=== PATIENT | female | born 1955 | race Caucasian/White ===

== ENCOUNTER 2018-04-07 19:42 | Observation (INO) ==
[2018-04-07] MEDS ORDERED: 0.9 % Sodium Chloride 1,000 ML IVC ONE (21:27)
--- NOTE | 2018-04-07 21:36 | Emergency Department Note ---
Disposition Clinical Impression: Altered mental status Qualifiers: Altered mental status type: unspecified Qualified Code(s): R41.82 - Altered mental status, unspecified Disposition: Admitted As Inpatient Condition: Fair Referrals: Ministerio Calloway DO [Primary Care Provider] - Time of Disposition: 01:54 Altered Mental Status HPI - General Chief Complaint: ED Altered Mental Status Stated Complaint: disoriented 2 days, on antibiotics for uti Time Seen by Provider: 04/07/18 21:05 Source: patient Limitations: no limitations Nursing Notes Reviewed: Yes Vital Signs Reviewed: Yes - History of Present Illness HPI Narrative: Patient is a 62-year-old female who presents to [facility] ED with a chief complaint of altered mental status. Patient is Accompanied by her boyfriend. States she started getting a cold after returning from vacation about a week and a half ago in [place]. Patient had been not feeling well and had seen her primary care physician who gave her prescription for Bactrim for a urinary tract infection. She has been on the antibiotic for the last 3 days. Boyfriend states she has been talking out of her head about being healed by God and Yahweh. No prior psychiatric history. 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 complaint: confusion Onset (ago): day(s) (2) Associated symptoms: Denies: chest pain, cough, fever, chills, nausea/vomiting, shortness of breath - Related Data Home Medications Medication Instructions Recorded Confirmed Aspirin Enteric Coated [Aspirin EC] 81 mg PO DAILY 02/04/16 08/20/16 Multivitamin [Multi-Day Vitamins] 1 tab PO DAILY 02/04/16 08/20/16 Naproxen Sodium [Aleve] 220 mg PO HS PRN 02/04/16 08/20/16 Simvastatin [Zocor] 10 mg PO HS 02/04/16 08/20/16 Black Cohosh Root Extract [Black 160 mg PO DAILY 08/20/16 08/20/16 Cohosh] Ubidecarenone/Vit E Acetate [Co 1 each PO DAILY 08/20/16 08/20/16 Q-10 100 mg Softgel] Previous Rx's Medication Instructions Recorded Ondansetron [Zofran] 8 mg PO Q8HR #10 tablet 08/20/16 Oxycodone HCl/Acetaminophen 1 each PO Q4-6H PRN #30 tablet 08/20/16 [Percocet 5-325 mg Tablet] Allergies Allergy/AdvReac Type Severity Reaction Status Date / Time acetaminophen [From Vicodin] AdvReac Nausea Verified 08/20/16 07:03 hydrocodone [From Vicodin] AdvReac Nausea Verified 08/20/16 07:03 All systems ED: reviewed and negative except as stated. Past Medical History - Past Medical History Attestation: Yes The following information was validated with the patient. Source: patient Medical history: Reports: hyperlipidemia Surgical history: Reports: Psychiatric history: Reports: no psych history - Social History Smoking Status: Never smoker Alcohol use: Reports: occasionally Drug use: Reports: none Physical Exam - General Limitations: no limitations General appearance: alert - Head Head exam: atraumatic, normocephalic, normal inspection - Eye Eye exam: Present: normal appearance, PERRL, EOMI - ENT ENT exam: normal exam, normal oropharynx, mucous membranes moist - Neck Neck exam: Present: normal inspection, full ROM, trachea midline - Chest Chest inspection: Present: normal inspection, symmetric chest wall rise - Respiratory Respiratory exam: Present: normal lung sounds bilaterally - Cardiovascular Cardiovascular exam: Present: normal rhythm, tachycardia - Abdominal Exam Abdominal exam: Present: soft, Non-Tender. Absent: tenderness, distention, guarding, rebound, rigidity - Extremities Exam Extremities exam: Present: normal inspection, full ROM. Absent: tenderness, pedal edema - Neurological Exam Neurological exam: Present: alert, oriented X3 - Psychiatric Psychiatric exam: Present: normal affect, normal mood, other (Patient with abnormal train of thought and talking out of her head about God) - Skin Skin exam: Present: warm, dry, intact, normal color Course Course Narrative: Patient seen and examined. Patient with altered mental status and is talking out of her head. Seems to be having an acute psychotic episode or delirium. Labs, chest x-ray, urine analysis ordered. - Reevaluation(s) Reevaluation #1: Patient's lab work shows a mild leukocytosis. Signs of possible urinary tract infection. We will go ahead and cover with a dose of Levaquin. With patient's symptoms of possible acute psychosis, we will have psychiatry 1A come evaluate her. We will admit for altered mental status workup. Time: 12:55 Reevaluation #2: I discussed with the hospitalist who has accepted patient for admission. We will place a consult to psychiatry. Time: 01:55 Vital Signs Temperature 98.8 F 04/07/18 19:50 Pulse Rate 117 04/07/18 19:50 Respiratory Rate 16 04/07/18 19:50 Blood Pressure 185/80 04/07/18 19:50 O2 Sat by Pulse Oximetry 97 04/07/18 19:50 Temperature 98.8 F 04/07/18 20:48 Pulse Rate 100 04/08/18 01:50 Respiratory Rate 20 04/08/18 01:50 Blood Pressure 170/68 04/08/18 01:50 O2 Sat by Pulse Oximetry 97 04/08/18 01:50 Oxygen Delivery Oxygen Delivery Room Air Altered Mental Status - Medical Records Medical records reviewed: Yes I reviewed the patient's medical records. - Lab Data Lab results reviewed: Yes I reviewed the patient's lab results. Result diagrams: 04/07/18 21:52 04/07/18 21:52 Lab Results 04/07/18 04/07/18 04/07/18 Range/Units 21:52 21:52 21:52 WBC 14.4 H (4.3-11.1) K/mcL RBC 4.34 (3.82-4.97) M/mcL Hgb 12.6 (11.5-15.4) g/dL Hct 38.8 (35.3-44.9) % MCV 89.4 (83.0-100.0) fL MCH 29.0 (28.0-33.3) pg MCHC 32.5 (31.6-35.5) g/dL RDW 14.1 (11.5-14.5) % Plt Count 382 D (140-400) K/mcL MPV 10.8 (9.4-12.4) fL Immature Gran % 1.2 (0-4) % Seg Neutrophils % 71.3 % Lymphocytes % 18.9 % Monocytes % 7.0 % Eosinophils % 1.2 % Basophils % 0.4 % Neutrophils # 10.3 H (1.6-8.9) K/mcL Lymphocytes # 2.7 (0.6-4.6) K/mcL Monocytes # 1.0 (0.0-1.3) K/mcL Eosinophils # 0.2 (0.0-0.6) K/mcL Basophils # 0.1 (0.0-0.2) K/mcL Sodium 137 (136-145) mEq/L Potassium 3.3 L (3.5-5.1) mEq/L Chloride 102 (98-107) mEq/L Carbon Dioxide 21 L (23-29) mEq/L BUN 11 (8-23) mg/dL Creatinine 1.03 (0.60-1.20) mg/dL Est GFR ( Amer) > 60 (> 60) Est GFR (Non-Af Amer) 54 L (> 60) BUN/Creatinine Ratio 11 (6-26) Glucose 117 H (70-105) mg/dL Calculated Osmolality 284 (280-300) Calcium 9.7 (8.6-10.3) mg/dL Total Bilirubin 0.5 (0.3-1.0) mg/dL Direct Bilirubin 0.1 (0.0-0.2) mg/dL Indirect Bilirubin 0.4 (0.0-1.2) mg/dL AST 48 H (13-39) Units/L ALT 102 H (7-52) Units/L Alkaline Phosphatase 276 H (34-104) Units/L Ammonia 37 (16-53) mcmol/L Troponin I < 0.03 (< 0.04) ng/mL Serum Total Protein 8.2 (6.4-8.9) g/dL Albumin 3.8 (3.5-5.7) g/dL Globulin 4.4 H (2.4-3.5) g/dL Albumin/Globulin Ratio 0.9 L (1.1-2.2) TSH 1.392 (0.340-5.600) mcIU/mL Urine Color (Yellow) Urine Clarity (Clear) Urine pH (5.0-8.0) pH Units Ur Specific [place] (1.010-1.025) Urine Protein (Neg-Trace) mg/dL Urine Glucose (UA) (Normal) mg/dL Urine Ketones (Negative) mg/dL Urine Blood (Negative) Urine Nitrite (Negative) Urine Bilirubin (Negative) Urine Urobilinogen (Normal) mg/dL Ur Leukocyte Esterase (Negative) Urine Microscopic RBC (0-3) per hpf Urine Microscopic WBC (0-3) per hpf Ur Squamous Epith Cells (None-Few) per lpf Urine Bacteria (None-Few) per hpf Hyaline Casts (None-Few) per lpf Ur Culture Indicated? (NO) Urine Opiates Screen (Dxjnsm=228) ng/mL Ur Barbiturates Screen (Yxswuv=200) ng/mL Ur Phencyclidine Scrn (Cutoff=25) ng/mL Ur Amphetamines Screen (Hbzwyk=6864) ng/mL U Benzodiazepines Scrn (Cdcgiy=987) ng/mL Urine Cocaine Screen (Cutoff= 300) ng/mL U Marijuana (THC) Screen (Cutoff = 50) ng/mL Ur Drug Screen Interp Ethyl Alcohol < 10 (Less than 10) mg/dL 04/07/18 04/07/18 Range/Units 22:20 22:20 WBC (4.3-11.1) K/mcL RBC (3.82-4.97) M/mcL Hgb (11.5-15.4) g/dL Hct (35.3-44.9) % MCV (83.0-100.0) fL MCH (28.0-33.3) pg MCHC (31.6-35.5) g/dL RDW (11.5-14.5) % Plt Count (140-400) K/mcL MPV (9.4-12.4) fL Immature Gran % (0-4) % Seg Neutrophils % % Lymphocytes % % Monocytes % % Eosinophils % % Basophils % % Neutrophils # (1.6-8.9) K/mcL Lymphocytes # (0.6-4.6) K/mcL Monocytes # (0.0-1.3) K/mcL Eosinophils # (0.0-0.6) K/mcL Basophils # (0.0-0.2) K/mcL Sodium (136-145) mEq/L Potassium (3.5-5.1) mEq/L Chloride (98-107) mEq/L Carbon Dioxide (23-29) mEq/L BUN (8-23) mg/dL Creatinine (0.60-1.20) mg/dL Est GFR ( Amer) (> 60) Est GFR (Non-Af Amer) (> 60) BUN/Creatinine Ratio (6-26) Glucose (70-105) mg/dL Calculated Osmolality (280-300) Calcium (8.6-10.3) mg/dL Total Bilirubin (0.3-1.0) mg/dL Direct Bilirubin (0.0-0.2) mg/dL Indirect Bilirubin (0.0-1.2) mg/dL AST (13-39) Units/L ALT (7-52) Units/L Alkaline Phosphatase (34-104) Units/L Ammonia (16-53) mcmol/L Troponin I (< 0.04) ng/mL Serum Total Protein (6.4-8.9) g/dL Albumin (3.5-5.7) g/dL Globulin (2.4-3.5) g/dL Albumin/Globulin Ratio (1.1-2.2) TSH (0.340-5.600) mcIU/mL Urine Color Yellow (Yellow) Urine Clarity Clear (Clear) Urine pH 7.0 (5.0-8.0) pH Units Ur Specific [place] 1.009 L (1.010-1.025) Urine Protein Negative (Neg-Trace) mg/dL Urine Glucose (UA) Normal (Normal) mg/dL Urine Ketones Negative (Negative) mg/dL Urine Blood Trace H (Negative) Urine Nitrite Negative (Negative) Urine Bilirubin Negative (Negative) Urine Urobilinogen Normal (Normal) mg/dL Ur Leukocyte Esterase Small H (Negative) Urine Microscopic RBC 0-3 (0-3) per hpf Urine Microscopic WBC 5-15 H (0-3) per hpf Ur Squamous Epith Cells Many H (None-Few) per lpf Urine Bacteria None Seen (None-Few) per hpf Hyaline Casts None Seen (None-Few) per lpf Ur Culture Indicated? NO. A (NO) Urine Opiates Screen Negative (Cqswbd=804) ng/mL Ur Barbiturates Screen Negative (Oafdcn=799) ng/mL Ur Phencyclidine Scrn Negative (Cutoff=25) ng/mL Ur Amphetamines Screen Negative (Casimo=0344) ng/mL U Benzodiazepines Scrn Negative (Qpddxp=495) ng/mL Urine Cocaine Screen Negative (Cutoff= 300) ng/mL U Marijuana (THC) Screen Negative (Cutoff = 50) ng/mL Ur Drug Screen Interp See Below Ethyl Alcohol (Less than 10) mg/dL - Radiology Data Radiology results reviewed: Yes I reviewed the patient's radiology results. Chest X-Ray 04/07/18 21:27 IMPRESSION: No acute cardiopulmonary disease. D/ / Bernardo Baker MD / Bernardo Baker MD Interpreting Provider: Bernardo Baker MD Head CT 04/07/18 21:29 IMPRESSION: No acute intracranial abnormality. D/ / Bernardo Baker MD / Bernardo Baker MD Interpreting Provider: Bernardo Baker MD Checklist - LKW: 3-4.5 hrs Add. Warnings/Precautions Patient/family understanding: The patient/family members have been counseled and understood the risk, benefit , and alternatives of treatment.
[2018-04-07 22:15] LABS: Basophils # 0.1 K/mcL (0.0-0.2); Basophils % 0.4 %; Eosinophils # 0.2 K/mcL (0.0-0.6); Eosinophils % 1.2 %; Hematocrit 38.8 % (35.3-44.9); Hemoglobin 12.6 g/dL (11.5-15.4); Immature Granulocytes % 1.2 % (0-4); Lymphocytes # 2.7 K/mcL (0.6-4.6); Lymphocytes % 18.9 %; Mean Corpuscular HGB Conc 32.5 g/dL (31.6-35.5); Mean Corpuscular Volume 89.4 fL (83.0-100.0); Mean Platelet Volume 10.8 fL (9.4-12.4); Neutrophils # 10.3 K/mcL (1.6-8.9); Platelet Count 382 K/mcL (140-400); Red Blood Count 4.34 M/mcL (3.82-4.97); Red Cell Distribution Width 14.1 % (11.5-14.5); Segmented Neutrophils % 71.3 %
[2018-04-07 22:43] LABS: Alanine Aminotransferase 102 Units/L (7-52); Albumin 3.8 g/dL (3.5-5.7); Albumin/Globulin Ratio 0.9 (1.1-2.2); Alkaline Phosphatase 276 Units/L (34-104); Aspartate Amino Transferase 48 Units/L (13-39); BUN/Creatinine Ratio 11 (6-26); Bilirubin,Direct 0.1 mg/dL (0.0-0.2); Bilirubin,Indirect 0.4 mg/dL (0.0-1.2); Bilirubin,Total 0.5 mg/dL (0.3-1.0); Blood Urea Nitrogen 11 mg/dL (8-23); Calcium 9.7 mg/dL (8.6-10.3); Carbon Dioxide 21 mEq/L (23-29); Chloride 102 mEq/L (98-107); Ethanol < 10 mg/dL (Less than 10); Globulin 4.4 g/dL (2.4-3.5); Glucose 117 mg/dL (70-105); Osmolality,Calculated 284 (280-300); Potassium 3.3 mEq/L (3.5-5.1); Sodium 137 mEq/L (136-145); Total Protein 8.2 g/dL (6.4-8.9); Troponin I < 0.03 ng/mL (< 0.04); eGFR For Non-African Americans 54 (> 60)
[2018-04-07 22:46] LABS: Bilirubin,Urine Negative (Negative); Blood,Urine Trace (Negative); Clarity,Urine Clear (Clear); Color,Urine Yellow (Yellow); Glucose,Urine (UA) Normal (Normal); Ketones,Urine Negative (Negative); Leukocyte Esterase,Urine Small (Negative); Nitrite,Urine Negative (Negative); Protein,Urine Negative (Neg-Trace); Specific Gravity,Urine 1.009 (1.010-1.025); Urobilinogen,Urine Normal (Normal)
[2018-04-07 22:49] LABS: Amphetamine Screen,Urine Negative ng/mL (Cutoff=1000); Bacteria,Urine None Seen per hpf (None-Few); Barbiturate Screen,Urine Negative ng/mL (Cutoff=200); Benzodiazepines Screen,Urine Negative ng/mL (Cutoff=200); Cannabinoid Screen,Urine Negative ng/mL (Cutoff = 50); Cocaine Screen,Urine Negative ng/mL (Cutoff= 300); Hyaline Casts,Urine None Seen per lpf (None-Few); Opiate Screen,Urine Negative ng/mL (Cutoff=300); Phencyclidine Screen,Urine Negative ng/mL (Cutoff=25); RBC,Urine 0-3 per hpf (0-3); Squamous Epithelial Cell,Urine Many per lpf (None-Few)
[2018-04-07 22:57] LABS: Thyroid Stimulating Hormone 1.392 mcIU/mL (0.340-5.600)
--- NOTE | 2018-04-08 00:04 | Emergency Department Note ---
Disposition Clinical Impression: Altered mental status Qualifiers: Altered mental status type: unspecified Qualified Code(s): R41.82 - Altered mental status, unspecified Disposition: Admitted As Inpatient Condition: Fair General Adult HPI - General Chief complaint: ED Altered Mental Status Stated complaint: disoriented 2 days, on antibiotics for uti Time Seen by Provider: 04/07/18 21:05 Source: patient Limitations: no limitations Nursing Notes Reviewed: Yes Vital Signs Reviewed: Yes - History of Present Illness Pain Scale: 0 - Related Data Home Medications Medication Instructions Recorded Confirmed Aspirin Enteric Coated [Aspirin EC] 81 mg PO DAILY 02/04/16 08/20/16 Multivitamin [Multi-Day Vitamins] 1 tab PO DAILY 02/04/16 08/20/16 Naproxen Sodium [Aleve] 220 mg PO HS PRN 02/04/16 08/20/16 Simvastatin [Zocor] 10 mg PO HS 02/04/16 08/20/16 Black Cohosh Root Extract [Black 160 mg PO DAILY 08/20/16 08/20/16 Cohosh] Ubidecarenone/Vit E Acetate [Co 1 each PO DAILY 08/20/16 08/20/16 Q-10 100 mg Softgel] Previous Rx's Medication Instructions Recorded Ondansetron [Zofran] 8 mg PO Q8HR #10 tablet 08/20/16 Oxycodone HCl/Acetaminophen 1 each PO Q4-6H PRN #30 tablet 08/20/16 [Percocet 5-325 mg Tablet] Allergies Allergy/AdvReac Type Severity Reaction Status Date / Time acetaminophen [From Vicodin] AdvReac Nausea Verified 08/20/16 07:03 hydrocodone [From Vicodin] AdvReac Nausea Verified 08/20/16 07:03 Past Medical History - Past Medical History Medical history: Reports: hyperlipidemia Surgical history: Reports: Psychiatric history: Reports: no psych history - Social History Smoking Status: Never smoker Alcohol use: Reports: occasionally Drug use: Reports: none Physical Exam - General Limitations: no limitations General appearance: alert Course Vital Signs Temperature 98.8 F 04/07/18 19:50 Pulse Rate 117 04/07/18 19:50 Respiratory Rate 16 04/07/18 19:50 Blood Pressure 185/80 04/07/18 19:50 O2 Sat by Pulse Oximetry 97 04/07/18 19:50 Temperature 98.6 F 04/08/18 03:40 Pulse Rate 98 04/08/18 03:40 Respiratory Rate 17 04/08/18 03:40 Blood Pressure 158/89 04/08/18 03:40 O2 Sat by Pulse Oximetry 98 04/08/18 03:40 Oxygen Delivery Oxygen Delivery Room Air Medical Decision Making - Lab Data Lab results reviewed: Yes I reviewed the patient's lab results. Result diagrams: 04/07/18 21:52 04/07/18 21:52 Lab Results 04/07/18 04/07/18 04/07/18 Range/Units 21:52 21:52 21:52 WBC 14.4 H (4.3-11.1) K/mcL RBC 4.34 (3.82-4.97) M/mcL Hgb 12.6 (11.5-15.4) g/dL Hct 38.8 (35.3-44.9) % MCV 89.4 (83.0-100.0) fL MCH 29.0 (28.0-33.3) pg MCHC 32.5 (31.6-35.5) g/dL RDW 14.1 (11.5-14.5) % Plt Count 382 D (140-400) K/mcL MPV 10.8 (9.4-12.4) fL Immature Gran % 1.2 (0-4) % Seg Neutrophils % 71.3 % Lymphocytes % 18.9 % Monocytes % 7.0 % Eosinophils % 1.2 % Basophils % 0.4 % Neutrophils # 10.3 H (1.6-8.9) K/mcL Lymphocytes # 2.7 (0.6-4.6) K/mcL Monocytes # 1.0 (0.0-1.3) K/mcL Eosinophils # 0.2 (0.0-0.6) K/mcL Basophils # 0.1 (0.0-0.2) K/mcL Sodium 137 (136-145) mEq/L Potassium 3.3 L (3.5-5.1) mEq/L Chloride 102 (98-107) mEq/L Carbon Dioxide 21 L (23-29) mEq/L BUN 11 (8-23) mg/dL Creatinine 1.03 (0.60-1.20) mg/dL Est GFR ( Amer) > 60 (> 60) Est GFR (Non-Af Amer) 54 L (> 60) BUN/Creatinine Ratio 11 (6-26) Glucose 117 H (70-105) mg/dL Calculated Osmolality 284 (280-300) Calcium 9.7 (8.6-10.3) mg/dL Total Bilirubin 0.5 (0.3-1.0) mg/dL Direct Bilirubin 0.1 (0.0-0.2) mg/dL Indirect Bilirubin 0.4 (0.0-1.2) mg/dL AST 48 H (13-39) Units/L ALT 102 H (7-52) Units/L Alkaline Phosphatase 276 H (34-104) Units/L Ammonia 37 (16-53) mcmol/L Troponin I < 0.03 (< 0.04) ng/mL Serum Total Protein 8.2 (6.4-8.9) g/dL Albumin 3.8 (3.5-5.7) g/dL Globulin 4.4 H (2.4-3.5) g/dL Albumin/Globulin Ratio 0.9 L (1.1-2.2) TSH 1.392 (0.340-5.600) mcIU/mL Urine Color (Yellow) Urine Clarity (Clear) Urine pH (5.0-8.0) pH Units Ur Specific [place] (1.010-1.025) Urine Protein (Neg-Trace) mg/dL Urine Glucose (UA) (Normal) mg/dL Urine Ketones (Negative) mg/dL Urine Blood (Negative) Urine Nitrite (Negative) Urine Bilirubin (Negative) Urine Urobilinogen (Normal) mg/dL Ur Leukocyte Esterase (Negative) Urine Microscopic RBC (0-3) per hpf Urine Microscopic WBC (0-3) per hpf Ur Squamous Epith Cells (None-Few) per lpf Urine Bacteria (None-Few) per hpf Hyaline Casts (None-Few) per lpf Ur Culture Indicated? (NO) Urine Opiates Screen (Gvuppg=467) ng/mL Ur Barbiturates Screen (Yqvktf=112) ng/mL Ur Phencyclidine Scrn (Cutoff=25) ng/mL Ur Amphetamines Screen (Jwbptx=9652) ng/mL U Benzodiazepines Scrn (Inwfct=626) ng/mL Urine Cocaine Screen (Cutoff= 300) ng/mL U Marijuana (THC) Screen (Cutoff = 50) ng/mL Ur Drug Screen Interp Ethyl Alcohol < 10 (Less than 10) mg/dL 04/07/18 04/07/18 Range/Units 22:20 22:20 WBC (4.3-11.1) K/mcL RBC (3.82-4.97) M/mcL Hgb (11.5-15.4) g/dL Hct (35.3-44.9) % MCV (83.0-100.0) fL MCH (28.0-33.3) pg MCHC (31.6-35.5) g/dL RDW (11.5-14.5) % Plt Count (140-400) K/mcL MPV (9.4-12.4) fL Immature Gran % (0-4) % Seg Neutrophils % % Lymphocytes % % Monocytes % % Eosinophils % % Basophils % % Neutrophils # (1.6-8.9) K/mcL Lymphocytes # (0.6-4.6) K/mcL Monocytes # (0.0-1.3) K/mcL Eosinophils # (0.0-0.6) K/mcL Basophils # (0.0-0.2) K/mcL Sodium (136-145) mEq/L Potassium (3.5-5.1) mEq/L Chloride (98-107) mEq/L Carbon Dioxide (23-29) mEq/L BUN (8-23) mg/dL Creatinine (0.60-1.20) mg/dL Est GFR ( Amer) (> 60) Est GFR (Non-Af Amer) (> 60) BUN/Creatinine Ratio (6-26) Glucose (70-105) mg/dL Calculated Osmolality (280-300) Calcium (8.6-10.3) mg/dL Total Bilirubin (0.3-1.0) mg/dL Direct Bilirubin (0.0-0.2) mg/dL Indirect Bilirubin (0.0-1.2) mg/dL AST (13-39) Units/L ALT (7-52) Units/L Alkaline Phosphatase (34-104) Units/L Ammonia (16-53) mcmol/L Troponin I (< 0.04) ng/mL Serum Total Protein (6.4-8.9) g/dL Albumin (3.5-5.7) g/dL Globulin (2.4-3.5) g/dL Albumin/Globulin Ratio (1.1-2.2) TSH (0.340-5.600) mcIU/mL Urine Color Yellow (Yellow) Urine Clarity Clear (Clear) Urine pH 7.0 (5.0-8.0) pH Units Ur Specific [place] 1.009 L (1.010-1.025) Urine Protein Negative (Neg-Trace) mg/dL Urine Glucose (UA) Normal (Normal) mg/dL Urine Ketones Negative (Negative) mg/dL Urine Blood Trace H (Negative) Urine Nitrite Negative (Negative) Urine Bilirubin Negative (Negative) Urine Urobilinogen Normal (Normal) mg/dL Ur Leukocyte Esterase Small H (Negative) Urine Microscopic RBC 0-3 (0-3) per hpf Urine Microscopic WBC 5-15 H (0-3) per hpf Ur Squamous Epith Cells Many H (None-Few) per lpf Urine Bacteria None Seen (None-Few) per hpf Hyaline Casts None Seen (None-Few) per lpf Ur Culture Indicated? NO. A (NO) Urine Opiates Screen Negative (Axhzct=993) ng/mL Ur Barbiturates Screen Negative (Encxmy=498) ng/mL Ur Phencyclidine Scrn Negative (Cutoff=25) ng/mL Ur Amphetamines Screen Negative (Dqfxcm=6159) ng/mL U Benzodiazepines Scrn Negative (Lxjjcp=675) ng/mL Urine Cocaine Screen Negative (Cutoff= 300) ng/mL U Marijuana (THC) Screen Negative (Cutoff = 50) ng/mL Ur Drug Screen Interp See Below Ethyl Alcohol (Less than 10) mg/dL - Radiology Data Radiology results reviewed: Yes I reviewed the patient's radiology results. Chest X-Ray 04/07/18 21:27 IMPRESSION: No acute cardiopulmonary disease. D/ / Bernardo Baker MD / Bernardo Baker MD Interpreting Provider: Bernardo Baker MD Head CT 04/07/18 21:29 IMPRESSION: No acute intracranial abnormality. D/ / Bernardo Baker MD / Bernardo Baker MD Interpreting Provider: Bernardo Baker MD Attestation Statement - Attestation Attestation: I, Guille Noe MD, personally evaluated this patient and discussed their management with the resident physician. I reviewed the resident's note and agree with the documented findings, medical decision making, and plan of care. 62-year-old female presents to the emergency department for altered mental status which started 2 days prior to arrival. Patient was diagnosed with UTI and started on Bactrim about 3 days ago. Over the past 2 days she has had symptoms of talking out of her head and saying things that do not make sense. She does not really seem confused or disoriented. She seems to be more psychotic and is talking about the creator the universe and [place]. Patient states that she is a codependent and could not feel herself. Patient appears to be having hallucinations during my interview. She initially admitted to having hallucinations but then denied it. She denies any suicidal or homicidal ideation. No prior history of any psychiatric issues. She denies any pain or symptoms other than some pain in her bladder area. No fever. No gross dysuria. On examination patient is a well-developed well-nourished female in no acute distress. She is alert and oriented 3. No cyanosis or diaphoresis. Breath sounds are clear and equal bilaterally. Heart regular rate and rhythm. Abdomen soft and nontender with normal bowel sounds. No gross focal neurological deficits. Labs reviewed. Chest x-ray negative. Head CT negative. Patient was evaluated by the [address] department here in the emergency department. The hospitalist, Dr. Wiley, was consulted and accepted admission of the patient. Inpatient psychiatric consultation recommended.
[2018-04-08] MEDS ORDERED: cefTRIAXone 2,000 MG in Water for inj. (sterile) 20 ML 20 ML IVP ONE (01:32)
[2018-04-08] MEDS ORDERED: Naloxone 0.4 MG/ML INJ IVP PRN (05:09)
[2018-04-08 06:06] LABS: Hematocrit 34.5 % (35.3-44.9); Hemoglobin 11.4 g/dL (11.5-15.4); Mean Corpuscular Hemoglobin 29.5 pg (28.0-33.3); Mean Corpuscular Volume 89.4 fL (83.0-100.0); Mean Platelet Volume 10.8 fL (9.4-12.4); Platelet Count 369 K/mcL (140-400); Red Blood Count 3.86 M/mcL (3.82-4.97); Red Cell Distribution Width 14.1 % (11.5-14.5)
[2018-04-08] MEDS ORDERED: CefTRIAXone 1,000 MG VIAL IM ONE (07:15)
[2018-04-08 07:18] LABS: BUN/Creatinine Ratio 9 (6-26); Blood Urea Nitrogen 9 mg/dL (8-23); Calcium 9.3 mg/dL (8.6-10.3); Carbon Dioxide 23 mEq/L (23-29); Chloride 110 mEq/L (98-107); Glucose 134 mg/dL (70-105); Osmolality,Calculated 299 (280-300); Potassium 3.9 mEq/L (3.5-5.1); Sodium 144 mEq/L (136-145); eGFR For Non-African Americans 56 (> 60)
--- NOTE | 2018-04-08 07:23 | Internal Med History&Physical ---
Date of Encounter: 04/08/18 Time of Encounter: 04:12 Internal Medicine - H&P: HPI Chief complaint: Acute encephalopathy Admitted From: Home Plans for Post Hospital Care: Home History of present illness: Ms. Rodriguez is a 62 year old female Patient presented to the emergency room for altered mental status, patient poor historian, not answering questions, history obtained from previous ER records. Apparently patient has been treated for urinary tract infection and was started on Bactrim about 3 days ago. She became disoriented, confused and was not making sense. 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 The ER she was making references to [facility] [employer]. Her lab work shows elevated white count of 14.4, potassium initially 3.3, and elevated liver enzymes. Her UA was positive for small leukocyte esterase, trace blood and 5-15 WBCs. Chest x-ray showed no acute findings. Head CT showed no acute intracranial abnormality. She was admitted for further observation and management of her encephalopathy. Past Med Surg Social Fam HX - Past Medical History Medical history: hyperlipidemia Additional medical history: right carotid bruit. mixed hyperlipidemia. hallux abductovalgus with bunions. carotid stenosis,bilateral Psychiatric history: no psych history - Past Surgical History Surgical History: Additional surgical history: Bilat knee replacemnet. - Social History Smoking Status: Never smoker Smokeless Tobacco Status: No Alcohol use: occasionally Drug use: none Internal Medicine - H&P: Meds Aspirin Enteric Coated [Aspirin EC] 81 mg PO DAILY 02/04/16 [History] Multivitamin [Multi-Day Vitamins] 1 tab PO DAILY 02/04/16 [History] Naproxen Sodium [Aleve] 220 mg PO HS PRN 02/04/16 [History] Simvastatin [Zocor] 10 mg PO HS 02/04/16 [History] Black Cohosh Root Extract [Black Cohosh] 160 mg PO DAILY 08/20/16 [History] Ondansetron [Zofran] 8 mg PO Q8HR #10 tablet 08/20/16 [Rx] Oxycodone HCl/Acetaminophen [Percocet 5-325 mg Tablet] 1 each PO Q4-6H PRN #30 tablet 08/20/16 [Rx] Ubidecarenone/Vit E Acetate [Co Q-10 100 mg Softgel] 1 each PO DAILY 08/20/16 [ History] 3 Allergy/AdvReac Type Severity Reaction Status Date / Time acetaminophen [From Vicodin] AdvReac Nausea Verified 08/20/16 07:03 hydrocodone [From Vicodin] AdvReac Nausea Verified 08/20/16 07:03 All Systems PM: A 10-system review of systems was performed and is negative for pertinent findings except as documented above in the HPI. - Constitutional Vitals: Temp Pulse Resp BP Pulse Ox 98.2 F 107 16 156/86 97 04/08/18 06:59 04/08/18 06:59 04/08/18 06:59 04/08/18 06:59 04/08/18 06:59 General appearance: Present: cooperative Exam: Patient very bizarre answers to questions, did not seem oriented. Responded to name but did not give any answers to my questions. - Head Head exam: Present: normal inspection - Eye Eye exam: Present: EOMI, normal appearance - Respiratory Respiratory exam: Present: CTAB. Absent: chest wall tenderness, wheezes - Cardiovascular Cardiovascular exam: Present: RRR. Absent: diastolic murmur, systolic murmur - GI/Abdominal GI/Abdominal exam: Present: normal bowel sounds, soft, tenderness Additional comments: Questionable tenderness with palpation initially but tolerated exam. No distention - Extremities Exam Extremities exam: Present: warm, radial pulses palpable and symmetrical. Absent : calf tenderness, tenderness - Neurological Exam Neurological exam: Present: no focal deficits, strengths equal and symetr throughout. Absent: motor sensory deficit, facial droop, speech deficit - Psychiatric Additional comments: not cooperative to questioning, followed commands with exam. Internal Med - H&P Results - Labs CBC & Chem 7: 04/08/18 05:45 04/07/18 21:52 Labs: Short CBC 04/08/18 Range/Units 05:45 WBC 9.2 (4.3-11.1) K/mcL Hgb 11.4 L (11.5-15.4) g/dL Hct 34.5 L (35.3-44.9) % Plt Count 369 (140-400) K/mcL - Assessment and plan (1) Acute encephalopathy Current Visit: Yes Status: Acute Assessment and plan: Unclear etiology. Patient demonstrated bizarre behaviour in the ER, and for my exam. Psych consult today Continue treatment for UTI as possible source of encephalopathy. Sitter at bedside. (2) Possible urinary tract infection Current Visit: Yes Status: Acute Assessment and plan: Patient had been treated for UTI outpatient, may still be contributing to her current encephalopathy. Continue treatment with ceftriaxone Follow up urine culture. - Time Spent With Patient Total time spent is greater than 50% in coordination of care (as documented) at patient's floor/unit and/or counseling patient: Greater than 35 minutes
--- NOTE | 2018-04-08 08:30 | Electrocardiograph Report ---
[place] [id number] Test Date: 2018-04-07 Pat Name: Jaida Rodriguez Department: Room: 3B21 Gender: F Professional Application Designer: : 1955 Requested By: Janette Florence Order Number: [id number] Reading MD: Constantino Aranda Measurements Intervals [place] Rate: 106 P: 69 MT: 133 QRS: 61 QRSD: 105 T: -1 QT: 350 QTc: 465 Interpretive Statements Sinus tachycardia Left atrial enlargement Nonspecific ST-T changes Electronically Signed On 04-08-2018 8:28:49 EDT by Constantino Aranda
[2018-04-08] MEDS: cefTRIAXone 1,000 MG in Water for inj. (sterile) 20 ML 10 ML IVP SCH (09:33)
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
--- NOTE | 2018-04-08 15:51 | Psychiatry Progress Note ---
Date of Encounter: 04/08/18 Time of Encounter: 13:45 Subjective Interval history: Psychiatric consultation note: 62 years old female admitted to the hospital for altered mental status with confusion and also UTI. Psychiatric consultation was requested to evaluate mental status change. I reviewed records and some history information from patient's family. Patient has no past mental health's treatment or history and the change mental status seem to be acute 2 or 3 days prior to admission, patient was taking Bactrim for UTI. On interview patient was confused she displayed labile affect and laughing and crying at times, thought block was noted patient could not complete sentence, she needed redirection but could not maintain attention. She could not provide any history, speech was disorganized and disconnected. She apologized frequently for not being able to answer questions. Review of Systems Psychiatric: Reports: confusion, memory loss, difficulty concentrating Results - Vital Signs Vital Signs: Temp Pulse Resp BP Pulse Ox 99.0 F 120 18 148/77 96 04/08/18 11:14 04/08/18 11:14 04/08/18 11:14 04/08/18 11:14 04/08/18 11:14 - Labs Labs: Laboratory Results - last 24 hr 04/08/18 04/08/18 05:45 05:45 WBC 9.2 RBC 3.86 Hgb 11.4 L Hct 34.5 L MCV 89.4 MCH 29.5 MCHC 33.0 RDW 14.1 Plt Count 369 MPV 10.8 Sodium 144 Potassium 3.9 Chloride 110 H Carbon Dioxide 23 BUN 9 Creatinine 0.99 Est GFR ( Amer) > 60 Est GFR (Non-Af Amer) 56 L BUN/Creatinine Ratio 9 Glucose 134 H Calculated Osmolality 299 Calcium 9.3 Assessment and Plan (1) Acute encephalopathy Current visit: Yes Status: Acute Additional Plan: 1. Continue medical stabilization for her UTI and any other medical issue 2. Recommend neurology consult to rule out neurological events such as CVA or seizure 3. After medical and neurological clearance elective hospitalization in psychiatry for further evaluation and treatment is recommended. Thank you for consultation. Consult Discharge Plan - Plan Referrals: Ministerio Calloway DO [Primary Care Provider] - Psychiatry Exam - Constitutional Vitals: Temp Pulse Resp BP Pulse Ox 99.0 F 120 18 148/77 96 04/08/18 11:14 04/08/18 11:14 04/08/18 11:14 04/08/18 11:14 04/08/18 11:14 General appearance: age & developmentally appropriate, well-groomed, well- nourished - Musculoskeletal Gait: normal Station: relaxed Strength & Tone: normal for patient - Psychiatric Patient Orientation: Yes Person, Yes Time, Yes Place Level of alertness: Alert Behavior: calm, cooperative, tearful, distractible, dramatic, withdrawn Psychomotor activity: Normal Eye Contact: Maintains Eye Contact Mood Description: Euthymic/stable, Labile Affect description: congruent with mood, labile Speech Volume: Normal Speech pattern: normal rate, normal rhythm, normal tone, fluent, spontaneous Language & Vocabulary: consistent with education Thought Process: Loose Associations, Thought Blocking, Disorganized, Slowed Thinking Thought Content: No Suicidal ideation, No Homicidal ideation, No Overt delusions Perceptual Disturbances: No Auditory hallucinations, No Visual hallucinations Attention Span Ability: Unable to Focus Memory Description: Immediate Impaired, Recent Impaired, Remote Impaired Patient Reliability: Not Reliable Historian Fund of knowledge: Yes abstraction ability, Yes aware of current events Intelligence Estimate: Average Judgment: Limited Insight: Partial
[2018-04-08] MEDS ORDERED: *HR* LORazepam 1 MG TABLET PO PRN (15:56)
[2018-04-08] MEDS ORDERED: *HR* LORazepam 2 MG/ML VIAL IM STA (16:09)
--- NOTE | 2018-04-08 21:38 | Event Note ---
Date of Encounter: 04/08/18 Time of Encounter: 21:05 Paged by pts. nurse Garcia RN regarding NIHSS order and Neuro consult for pt. that was recommended by Psychiatry today but never ordered. Psychiatry recommended neuro work-up to r/o ischemia/infarct d/t pts. AMS and difficulty w/ speech. MRI of the head/brain ordered. NIHSS ordered. Dysphagia screen ordered. Neuro checks Q2HR ordered. NPO until dysphagia screen passed. Discussed orders w /pts. nurse Garcia. NIHSS Modified after initial NIHSS if appropriate. Pt. to be monitored closely.
[2018-04-08] MEDS ORDERED: Haloperidol Lactate 5 MG/ML VIAL IVP ONE (23:16)
[2018-04-09] MEDS ORDERED: diazePAM 10 MG/2 ML SYRINGE IVP ONE (00:08)
[2018-04-09 00:42] LABS: Bilirubin,Urine Negative (Negative); Blood,Urine Negative (Negative); Clarity,Urine Clear (Clear); Color,Urine Yellow (Yellow); Glucose,Urine (UA) Normal (Normal); Ketones,Urine Negative (Negative); Leukocyte Esterase,Urine Trace (Negative); Nitrite,Urine Negative (Negative); Protein,Urine Negative (Neg-Trace); Specific Gravity,Urine 1.005 (1.010-1.025); Urobilinogen,Urine Normal (Normal)
[2018-04-09 00:45] LABS: Bacteria,Urine None Seen per hpf (None-Few); Hyaline Casts,Urine None Seen per lpf (None-Few); Squamous Epithelial Cell,Urine Moderate per lpf (None-Few)
[2018-04-09 00:58] LABS: Amphetamine Screen,Urine Negative ng/mL (Cutoff=1000); Barbiturate Screen,Urine Negative ng/mL (Cutoff=200); Benzodiazepines Screen,Urine Negative ng/mL (Cutoff=200); Cannabinoid Screen,Urine Negative ng/mL (Cutoff = 50); Cocaine Screen,Urine Negative ng/mL (Cutoff= 300); Opiate Screen,Urine Negative ng/mL (Cutoff=300); Phencyclidine Screen,Urine Negative ng/mL (Cutoff=25)
[2018-04-09] MEDS ORDERED: *HR* LORazepam 1 MG TABLET PO ONE (09:08)
[2018-04-09] MEDS: cefTRIAXone 1,000 MG in Water for inj. (sterile) 20 ML 10 ML IVP SCH (09:53)
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
--- NOTE | 2018-04-09 17:19 | Neurology - Consult Note ---
Date of Encounter: 04/09/18 Time of Encounter: 17:12 Assessment and Plan (1) Altered mental status Current Visit: Yes Status: Acute At this juncture my suspicion is that the acute mental status changes were likely either due to the effects of the acute urinary tract infection, or perhaps the initial antibiotics that she was started on to treated. Her white blood cell count has resolved and she seems to be back to her normal baseline status according to family members present. I find no evidence to suspect a central nervous system infectious or inflammatory vascular or neoplastic process. At this juncture you may discharge her at your discretion. I will reevaluate her at your request. Qualifiers: Altered mental status type: unspecified Qualified Code(s): R41.82 - Altered mental status, unspecified History of Present Illness HPI: The chart was reviewed, the patient was seen and examined. Ms. Rodriguez is a 62 year old female who is being seen for neurologic consultation secondary to altered mental status. Apparently she got back from a vacation in [place] about a week and a half ago. She is not been feeling well and saw her family provider who apparently gave her prescription for Bactrim to treat her urinary tract infection. Apparently she been on this antibiotic for 3 days or so and then "talking out of her head" however she seems to have periods where she is lucid and then she had another period where she had a strange behavior witnessed by the admitting hospitalist. She denies any history of psychiatric illness. She denies any headache, visual changes balance difficulty. Currently her brother and her significant other are in the room. She seems to be back to her normal baseline status. CT scan of the head was obtained and was negative. Her WBC count was elevated at 14.4 upon admission. Today it is 9.2. She was given Rocephin at the time of admission. AST and ALTs was slightly elevated. BUN/creatinine and electrolyte panels were essentially normal. Glucose today was elevated at 134. Urine tox screen was negative as well. Past Med Surg Social Fam HX - Past Medical History Medical history: hyperlipidemia Additional medical history: right carotid bruit. mixed hyperlipidemia. hallux abductovalgus with bunions. carotid stenosis,bilateral Psychiatric history: no psych history - Past Surgical History Surgical History: Additional surgical history: Bilat knee replacemnet. - Social History Smoking Status: Never smoker Smokeless Tobacco Status: No Alcohol use: occasionally Drug use: none Medications and Allergies Aspirin Enteric Coated [Aspirin EC] 81 mg PO DAILY 02/04/16 [History] Multivitamin [Multi-Day Vitamins] 1 tab PO DAILY 02/04/16 [History] Naproxen Sodium [Aleve] 220 mg PO HS PRN 02/04/16 [History] Simvastatin [Zocor] 10 mg PO HS 02/04/16 [History] 3 Allergy/AdvReac Type Severity Reaction Status Date / Time acetaminophen [From Vicodin] AdvReac Nausea Verified 08/20/16 07:03 hydrocodone [From Vicodin] AdvReac Nausea Verified 08/20/16 07:03 All Systems: The remainder of the systems were reviewed and are negative Physical Examination - Vital Signs Vital Signs: Initial Vital Signs Temp Pulse Resp BP Pulse Ox 98.8 F 117 16 185/80 97 04/07/18 19:50 04/07/18 19:50 04/07/18 19:50 04/07/18 19:50 04/07/18 19:50 - Neurologic Detailed motor examination: full strength in all major muscle groups Motor examination - right side: 5/5: deltoids, biceps, triceps, wrist flexion, wrist extension, social media sr strategy manager, hip flexors, tibialis Anterior, quadriceps, toe extension (EHL), plantarflexion Motor examination - left side: 5/5: deltoids, biceps, triceps, wrist flexion, wrist extension, hip flexors, social media sr strategy manager, quadriceps, tibialis Anterior, toe extension (EHL), plantarflexion Mental Status Examination: awake, alert, oriented to person, oriented to place, oriented to time, follows commands appropriately, answers questions appropriately, no agnosia, no aphasia, no aproxia Cranial nerve examination: PERRL, EOMI, visual urena intact, corneal reflexes brisk symmetrically, sensory to face intact, mastication intact, no facial asymmetry is present, no dysarthria, hearing is intact symmetrically, soft palate elevates bilaterally upon phonation, gag reflex intact, flexes SCM and trapezius muscles symmetrically with full power, tongue protrudes midline, no atrophy or facial fasiculations present Cerebellar examination: no dysmetria, performs finger to nose and heel to zambrano symmetrically without ataxia, no gait ataxia, no truncal ataxia, no difficulty with rapid alternating movements Results - Laboratory Findings CBC and BMP: 04/08/18 05:45 04/08/18 05:45 Abnormal lab findings: Abnormal lab results Hgb 11.4 g/dL (11.5-15.4) L 04/08/18 05:45 Hct 34.5 % (35.3-44.9) L 04/08/18 05:45 Neutrophils # 10.3 K/mcL (1.6-8.9) H 04/07/18 21:52 Chloride 110 mEq/L (98-107) H 04/08/18 05:45 Est GFR (Non-Af Amer) 56 (> 60) L 04/08/18 05:45 Glucose 134 mg/dL (70-105) H 04/08/18 05:45 AST 48 Units/L (13-39) H 04/07/18 21:52 ALT 102 Units/L (7-52) H 04/07/18 21:52 Alkaline Phosphatase 276 Units/L (34-104) H 04/07/18 21:52 Globulin 4.4 g/dL (2.4-3.5) H 04/07/18 21:52 Albumin/Globulin Ratio 0.9 (1.1-2.2) L 04/07/18 21:52 Ur Specific [place] 1.005 (1.010-1.025) L 04/09/18 00:15 Ur Leukocyte Esterase Trace (Negative) H 04/09/18 00:15 Urine Microscopic RBC 5-15 per hpf (0-3) H 04/09/18 00:15 Urine Microscopic WBC 5-15 per hpf (0-3) H 04/09/18 00:15 Ur Squamous Epith Cells Moderate per lpf (None-Few) H 04/09/18 00:15 Ur Culture Indicated? YES (NO) A 04/09/18 00:15 Consult Discharge Plan - Plan Referrals: ColMinisterio michel DO [Primary Care Provider] -
[2018-04-10] MEDS: cefTRIAXone 1,000 MG in Water for inj. (sterile) 20 ML 10 ML IVP SCH (07:33)
[2018-04-10 08:32] VITALS: BP 136/78
--- NOTE | 2018-04-10 13:47 | Discharge Summary ---
Date of Encounter: 04/10/18 Time of Encounter: 08:50 - Discharge Diagnosis (1) DVT prophylaxis Priority: Secondary Status: Acute Assessment and Plan: SCDs ordered. Pt is ambulatory (2) Tachycardia Priority: Secondary Status: Acute Assessment and Plan: Acute. Pt denies symptoms. No dyspnea or chest pain. Pt has been placed on Metoprolol 12.5mg po BID, rate has slowed into the 80s. Troponin negative Continue telemetry (3) Acute encephalopathy Priority: Secondary Status: Resolved Assessment and Plan: Unclear etiology. Pt has been being treated outpatient for UTI. She is inappropriate and does not answer questions directly and is slow to respond. Urine is not indicative of UTI, labs are unremarkable, TSH is WnL, ammonia is WNL. Repeat urine is also negative, as is tox screen. Head CT is negative, chest xray is negative. Vitals are stable and WNL, pt is tachycardic and BB has been started for management. There does not appear to be a clear, metabolic cause for her change in mental status. Psychiatry is consulted, I appreciate their recommendations and consultation. 04/09-Psych has seen pt and has requested that neuro see pt as well. Consultation is in and pending. No new orders or recommendations from psychiatry. MRI brain negative. 04/10- Pt has returned to baseline today and states that she is feeling better today. Family agrees that she is back to herself and is ready to go home. Psychiatry has seen pt and has no recommendations. Pt will be discharged. (4) Altered mental status Priority: Secondary Status: Resolved Assessment and Plan: Resolved. Qualifiers: Altered mental status type: unspecified Qualified Code(s): R41.82 - Altered mental status, unspecified (5) Possible urinary tract infection Priority: Secondary Status: Ruled-out Assessment and Plan: Current urine does not appear to indicate infection. Pt was being treated for UTI prior to admission, but it has appeared to resolve. 04/09- Repeat urine collected at behest of pt, negative. 04/10- Pt remains asymptomatic, labs and vitals stable and WNL. Hospital course: Please see assessment and plan for hospital course. Discharge discussed with: patient, family, nurse - Time Spent with Patient Total time spent providing and/or coordinating discharge services: Less than 30 minutes - Discharge Medications Prescriptions: Metoprolol [Lopressor] 12.5 mg PO BID #60 tablet Home Medications: Aspirin Enteric Coated [Aspirin EC] 81 mg PO DAILY 02/04/16 [History] Multivitamin [Multi-Day Vitamins] 1 tab PO DAILY 02/04/16 [History] Naproxen Sodium [Aleve] 220 mg PO HS PRN 02/04/16 [History] Simvastatin [Zocor] 10 mg PO HS 02/04/16 [History] Metoprolol [Lopressor] 12.5 mg PO BID #60 tablet 04/10/18 [Rx] Allergies/Adverse Reactions: 3 Allergy/AdvReac Type Severity Reaction Status Date / Time acetaminophen [From Vicodin] AdvReac Nausea Verified 08/20/16 07:03 hydrocodone [From Vicodin] AdvReac Nausea Verified 08/20/16 07:03 Date of admission: 04/08/18 01:41 Primary care physician: Ministerio Valleopy Consults: 04/08/18 21:25 Consult to Neurology [CONS] Routine Consulting Provider: Neurology [facility] Reason for Consult: AMS Call Completed: No Discharging clinician: Jacki Sanches Anticipated date of discharge: 04/10/18 - Constitutional Vitals: Temp Pulse Resp BP Pulse Ox 98.3 F 86 15 136/78 97 04/10/18 08:31 04/10/18 08:31 04/10/18 08:31 04/10/18 08:31 04/10/18 08:31 General appearance: Present: cooperative, pleasant, no acute distress, answers questions appropriately - Head Head exam: Present: atraumatic, normal inspection, normocephalic - Eye Eye exam: Present: EOMI, normal appearance, conjuntiva pink, sclera anicteric. Absent: nystagmus - Neck Neck exam general surgery: Present: supple, trachea midline. Absent: lymphadenopathy - Respiratory Respiratory exam: Present: CTAB. Absent: accessory muscle use, rales, rhonchi, wheezes - Cardiovascular Cardiovascular exam: Present: RRR, +S1, +S2. Absent: diastolic murmur, gallop, rubs, systolic murmur - GI/Abdominal GI/Abdominal exam: Present: normal bowel sounds, soft, no peritoneal signs. Absent: distended, hepatomegaly, tenderness - Extremities Exam Extremities exam: Present: normal capillary refill, normal inspection, warm, radial pulses palpable and symmetrical. Absent: calf tenderness, cyanotic, pedal edema, tenderness - Neurological Exam Neurological exam: Present: alert, oriented X3, no focal deficits. Absent: facial droop, speech deficit - Skin Skin exam: Present: dry, intact, normal color, warm. Absent: rash - Patient Status Disposition: Home, Self-Care Condition: Good Functional capacity at discharge: independent ambulation Overall status at discharge: patient is back to baseline - Discharge Instructions Follow Up With: Ministerio Calloway DO [Primary Care Provider] - Additional Instructions: Take your medications as directed. Follow up with Dr. Calloway as directed. Return to the ER as needed for any other problems or concerns or if your symptoms return worsen. Return to your normal diet and activities as tolerated. - Diet and Activity Activity: increase activity as tolerated Diet: advance to your usual diet
--- NOTE | 2018-04-10 14:49 | Psychiatry Progress Note ---
Date of Encounter: 04/10/18 Time of Encounter: 14:00 Subjective Interval history: Psychiatric consult follow-up: Patient was seen by neurology, she is feeling better, speech is more organized, affect is more stable. Review of Systems Psychiatric: Reports: confusion, memory loss, difficulty concentrating Results - Vital Signs Vital Signs: Temp Pulse Resp BP Pulse Ox 98.3 F 86 15 136/78 97 04/10/18 08:31 04/10/18 08:31 04/10/18 08:31 04/10/18 08:31 04/10/18 08:31 - Impressions ITS Impressions Brain MRI 04/08/18 21:26 IMPRESSION: No evidence of acute ischemic insult, acute intracranial hemorrhage, or mass lesion. D/ / Sebastian Chávez MD / Sebastian Chávez MD Interpreting Provider: Sebastian Chávez MD Assessment and Plan (1) Altered mental status Current visit: Yes Status: Resolved Additional Plan: From psychiatric standpoint, patient can be discharged when medically stable. Qualifiers: Altered mental status type: unspecified Qualified Code(s): R41.82 - Altered mental status, unspecified Consult Discharge Plan - Plan Additional Instructions: Take your medications as directed. Follow up with Dr. Calloway as directed. Return to the ER as needed for any other problems or concerns or if your symptoms return worsen. Return to your normal diet and activities as tolerated. Referrals: Ministerio Calloway DO [Primary Care Provider] - Prescriptions: Metoprolol [Lopressor] 12.5 mg PO BID #60 tablet Psychiatry Exam - Constitutional Vitals: Temp Pulse Resp BP Pulse Ox 98.3 F 86 15 136/78 97 04/10/18 08:31 04/10/18 08:31 04/10/18 08:31 04/10/18 08:31 04/10/18 08:31 General appearance: age & developmentally appropriate, well-groomed, well- nourished, obese - Musculoskeletal Gait: normal Station: relaxed Strength & Tone: normal for patient - Psychiatric Patient Orientation: Yes Person, Yes Time, Yes Place Level of alertness: Alert Behavior: calm, cooperative Psychomotor activity: Normal Eye Contact: Maintains Eye Contact Mood Description: Euthymic/stable Affect description: congruent with mood, full range Speech Volume: Normal Speech pattern: normal rate, normal rhythm, normal tone, fluent, spontaneous Language & Vocabulary: consistent with education Thought Process: Linear, Goal Oriented Thought Content: No Suicidal ideation, No Homicidal ideation, No Overt delusions Perceptual Disturbances: No Auditory hallucinations, No Visual hallucinations Attention Span Ability: Capable of Focused Attention Memory Description: Grossly Intact Patient Reliability: Reliable Historian Fund of knowledge: Yes abstraction ability, Yes aware of current events Intelligence Estimate: Average Judgment: Limited Insight: Partial
== END 2018-04-10 16:28 | disposition home or self-care (01) ==
LOC: EMEROOARM 19:42 → 3BNU 19:42
PROVIDERS: ADMIT Family Medicine; ATTEND Family Medicine